=== PATIENT | female | born 1985 | race Caucasian/White ===

== ENCOUNTER 2018-10-10 07:26 | Inpatient (IN) | payer BC ==
[~2018-10-10 07:26] MED LIST: Bupivacaine 0.25% 10 ML SDV ONE
--- NOTE | 2018-10-10 07:45 | PCM.LDHP ---
L&D History of Present Illness - General Date of Service: 10/10/18 Admit Problem/Dx: Admission Diagnosis/Problem Admission Diagnosis/Problem 10/10/18 07:34 Mauro is a 33-year-old 6 para 5005 white female with an LEE of 2018 at 39-0/7 weeks gestational age admitted for induction of labor. Source of Information: Patient History Limitations: Reports: No Limitations - History of Present Illness Introduction:: Mauro is a 33-year-old 6 para 5005 white female with an LEE of 2018 at 39-0/7 weeks gestational age admitted for induction of labor.Patient has been assessed of the options of therapy including induction of labor, allowing for onset of natural labor. She appears to understand, wishes to proceed. 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 He is not 2018 is based upon a certain last menstrual period starting 01/10/2018 and supported by 3 ultrasounds done on 05/02/2018, 06/15/2018 and 08/29/2018. Patient's course has been unremarkable with the exception of 1 ultrasound finding of the fetus and that is left renal hydronephrosis noted with thinning of the kidney parenchyma. This is the indication for the the recommendation for induction of labor at 39 weeks gestational age. Patient initiated her care at approximately 12 weeks on 04/04/2018. She seen on a regular basis. With complete obstetric ultrasound patient is noted to have a baby with right renal kidney pelvis which is upper limits normal size. Follow-up ultrasound confirmed an dilation with the diagnosis of hydronephrosis. Patient was referred to Dr. Pasha MURPHY and decision was made to proceed with induction of labor at 39 weeks. Recommendation was for follow-up ultrasound of kidneys and evaluation after delivery. Patient's weight during the course of the was from 173.6 pounds 196 pounds for approximately a 23 pound weight gain. Her vital signs remained stable throughout the course and her fundal height growth was appropriate. Patient declines STD testing. She desires an epidural in labor and delivery. [place] depression screening score was 0. The strep screen was positive on urine culture at the beginning of the . She is a candidate for antibiotic prophylaxis. She declines flu vaccine. She is planning on breast-feeding. She declined genetic evaluation. She did have her RhoGAM administered on 07/26/2018 at the end of second trimester. Past obstetric history is as follows: Patient had menarche at age 15. Cycles every 20-29 days. No control to time conception. Her final LEE is based upon a certain last menstrual period which started on 01/10/2018. Deliveries have included the followin. Female born 08/20/2009 at 41 weeks gestational age after 12 hours labor6 lbs. 15 oz.-Child's name is Rosibel. 2. Male infant born [birth year]2010 at 38 weeks gestational age after 6 hours of labor7 lbs. 11 oz.child's name is Gerry. 3. Male born [birth year]2011 at 41 weeks gestational age after 8 hours of labor7 lbs. 14 oz.child's name is Hernandez. 4. Female infant born 05/27/2014 at 40-2/7 weeks gestational age after 7 hours of labor9 lbs. 1 oz.child's name is Astrid Elias. 5. Male born 02/18/2016 at 40 weeks gestational age7 hours of labor7 lbs. 0 oz.child's name is Ian. Laboratory testing shows blood to be A- with a negative antibody screen. First hemoglobin was 12.0 g/dL. Platelets at that time were 295 ,000. She is rubella immune. She received RhoGAM on 07/26/2018. Patient refused STI testing. Urine culture showed group B strep positive status second trimester labs showed a hemoglobin of 10.8 g she deciliter and patient started on iron supplementation. Platelets were 204,00. 1 hour GTT was 127. Allergies: seasonal only Medications: 1. vitamins1 daily 2. Ferrous sulfate 325 mg by mouth daily. Past medical history: 1. 5. 2. Abnormal Pap smear age 18. Past surgical history: 1. [place] teeth removal Family history: Mother and father are alive and well. No anesthesia, bleeding, blood clotting problems noted in the family. Social history: Patient is . She lives in [facility] with her and family. 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 She is a college graduate. She does not use any significant amounts of alcohol, drugs or tobacco. Review of systems: In general patient has no complaints. Baby has been active. Skin: Negative Lungs: No infectious symptoms or shortness of breath Cardiovascular: No chest pain or exercise intolerance Breasts: Changes associated with but otherwise no lumps, changes in size, pain, dimpling, discharge or axillary or supraclavicular concerns. GI: Negative : changes Musculoskeletal: Negative Neurological: Negative In general the patient is well-developed, well-nourished, pleasant female of stated age in no acute distress. Skin is warm dry without lesions. HEENT, neck and back within normal limits. Lungs are clear with good breath sounds in all lung yanes. Cardiovascular exam shows regular and rhythm without murmurs. Breasts exam is deferred having been done at first visit found to be normal and is not repeated at this time. Patient plans to breast-feed. Abdomen is gravid with last fundal height in clinic at 38 cm. Genital digital exam last evaluation shows cervix to be 2 cm, 70% effaced, very soft, mid position and -3 station.. Extremities and neurological exam are grossly within normal limits. 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 39-0/7 week intrauterine admitted for induction of labor due to hydronephrosis. 2. Risks for the include hydronephrosis, history macrosomic baby , 6 status, group B strep positive status. 3. Group B strep positive per urine culture early in pregnancypatient is candidate for ampicillin prophylaxis in labor and delivery 4. Patient desires epidural in labor and delivery 5. Patient is rubella immune 6. RPR nonreactive Plan: 1. Artificial rupture membranes induction of labor augmentation with Pitocin as necessary 2. Group B strep prophylaxis with ampicillin per protocol 3. Epidural per patient desire 4. Support breast-feeding decision 5. RPR and CBC upon admission 6. Inform pediatrics of hydronephrosis.
[2018-10-10] MEDS ORDERED: Ondansetron 4 MG/2 ML SDV IVPUSH PRN ×2 (08:13→10:08)
[2018-10-10] MEDS ORDERED: Sodium Chloride 0.9% 10 ML Syringe FLUSH PRN (08:13)
[2018-10-10] MEDS ORDERED: Nalbuphine 10 MG/1 ML Vial IVPUSH PRN (08:13)
[2018-10-10] MEDS ORDERED: Ampicillin 2 GM in Sodium Chloride 0.9% 100 ML IV ONE (08:13)
[2018-10-10] MEDS ORDERED: Oxytocin/Lactated Ringers 10 UNIT/1,000 ML BAG IV SCH ×2 (08:15→08:30)
[2018-10-10] MEDS: Lactated Ringers 1,000 ML IV SCH ×3 (08:45→13:56)
[2018-10-10] MEDS ORDERED: fentaNYL 100 MCG/2 ML SDV EPIDUR PRN (10:08)
[2018-10-10] MEDS ORDERED: ePHEDrine 50 MG/ML SDV IVPUSH PRN (10:08)
--- NOTE | 2018-10-10 10:12 | PCM.PREANE ---
Preanesthetic Assessment - Anesthesia/Transfusion/Family Hx Anesthesia History: Prior Anesthesia Without Reaction Family History of Anesthesia Reaction: No Transfusion History: No Prior Transfusion(s) Intubation History: Unknown - Review of Systems General: No Symptoms Pulmonary: No Symptoms Cardiovascular: No Symptoms, Palpitations (on occasion with dehydration) Gastrointestinal: No Symptoms Neurological: No Symptoms, Headache Other: Reports: None - Physical Assessment NPO Status Date: 10/10/18 NPO Status Time: 06:00 Vital Signs: Last Vital Signs Temp 36.9 C 10/10/18 08:13 Pulse 94 10/10/18 08:13 Resp 16 10/10/18 08:13 BP 124/80 10/10/18 08:13 Pulse Ox 99 10/10/18 08:13 Height: 1.8 m Weight: 88.451 kg ASA Class: 2 Mental Status: Alert & Oriented x3 Airway Class: Mallampati = 2 Dentition: Reports: Normal Dentition, Caries Thyro-Mental Finger Breadths: 3 Mouth Opening Finger Breadths: 3 ROM/Head Extension: Full Lungs: Clear to Auscultation, Normal Respiratory Effort Cardiovascular: Regular Rate, Regular Rhythm, No Murmurs - Lab Values: Laboratory Last Values WBC 6.34 K/mm3 (3.98-10.04) 10/10/18 08:23 RBC 3.69 M/mm3 (3.98-5.22) L 10/10/18 08:23 Hgb 11.0 gm/L (11.2-15.7) L 10/10/18 08:23 Hct 32.2 % (34.1-44.9) L 10/10/18 08:23 MCV 87.3 fl (79.4-94.8) 10/10/18 08:23 MCH 29.8 pg (25.6-32.2) 10/10/18 08:23 MCHC 34.2 g/dl (32.2-35.5) 10/10/18 08:23 RDW Std Deviation 40.6 fL (36.4-46.3) 10/10/18 08:23 Plt Count 194 K/mm3 (182-369) 10/10/18 08:23 MPV 9.2 fl (9.4-12.3) L 10/10/18 08:23 Neut % (Auto) 78.0 % (34.0-71.1) H 10/10/18 08:23 Lymph % (Auto) 11.8 % (19.3-51.7) L 10/10/18 08:23 [place] % (Auto) 9.0 % (4.7-12.5) 10/10/18 08:23 Eos % (Auto) 0.5 (0.7-5.8) L 10/10/18 08:23 Baso % (Auto) 0.2 % (0.1-1.2) 10/10/18 08:23 Neut # (Auto) 4.95 K/mm3 (1.56-6.13) 10/10/18 08:23 Lymph # (Auto) 0.75 K/mm3 (1.18-3.74) L 10/10/18 08:23 [place] # (Auto) 0.57 K/mm3 (0.24-0.36) H 10/10/18 08:23 Eos # (Auto) 0.03 K/mm3 (0.04-0.36) L 10/10/18 08:23 Baso # (Auto) 0.01 K/mm3 (0.01-0.08) 10/10/18 08:23 Above labs reviewed and noted and within acceptable ranges to proceed with epidural if desired. 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: Hematologic History: Reports: Anemia Dermatologic History: Reports: Eczema - Past Surgical History HEENT Surgical History: Reports: Oral Surgery - SUBSTANCE USE Smoking Status *Q: Never Smoker Recreational Drug Use History: No - HOME MEDS Home Medications: Home Meds Vit 90/Iron Fum/Folic [ Formula] 1 each PO DAILY 05/27/14 [ History] Ferrous Sulfate [Iron] 325 mg PO DAILY 10/05/18 [History] - CURRENT (IN HOUSE) MEDS Current Meds: Current Medications Ephedrine Sulfate (Ephedrine Sulfate) 5 mg IVPUSH ASDIRECTED PRN PRN Reason: Hypotension Fentanyl (Sublimaze) 100 mcg EPIDUR Q3H PRN PRN Reason: Pain Fentanyl/Bupivacaine HCl (Fentanyl/Bupivacaine/Ns 2 Mcg-0.125% 100 Ml) 100 ml EPIDUR ASDIRECTED ADITYA Ampicillin Sodium 1 gm/ Sodium (Chloride) 100 mls @ 200 mls/hr IV Q4H ADITYA Lactated Ringer's (Ringers, Lactated) 1,000 mls @ 100 mls/hr IV ASDIRECTED ADITYA Last Admin: 10/10/18 08:45 Dose: 100 mls/hr Oxytocin/Lactated Ringer's (Pitocin In Lr 10 Units/1,000 Ml) 10 unit in 1,000 mls @ 500 mls/hr IV .CONTINUOUS ADITYA Oxytocin/Lactated Ringer's (Pitocin In Lr 10 Units/1,000 Ml) 10 unit in 1,000 mls @ 12 mls/hr IV TITRATE ADITYA; Protocol Phenylephrine HCl 1 mg/ Sodium (Chloride) 10.1 mls @ 1 mls/sec IV TITRATE ADITYA; Protocol Nalbuphine HCl (Nubain) 10 mg IVPUSH Q2H PRN PRN Reason: Pain Ondansetron HCl (Zofran) 4 mg IVPUSH Q4H PRN PRN Reason: Nausea/Vomiting Ondansetron HCl (Zofran) 4 mg IVPUSH ONETIME PRN PRN Reason: Nausea/Vomiting Sodium Chloride (Saline Flush) 10 ml FLUSH ASDIRECTED PRN PRN Reason: Keep Vein Open Discontinued Medications Ampicillin Sodium 2 gm/ Sodium (Chloride) 100 mls @ 200 mls/hr IV ONETIME ONE Stop: 10/10/18 08:42 Last Admin: 10/10/18 08:45 Dose: 200 mls/hr
[2018-10-10] MEDS ORDERED: Phenylephrine 1 MG in Sodium Chloride 0.9% 10 ML IV SCH (10:15)
[2018-10-10] MEDS ORDERED: Bupivacaine/fentaNYL/NS 100 ML Bag EPIDUR SCH (10:15)
[2018-10-10] MEDS ORDERED: Ampicillin 1 GM in Sodium Chloride 0.9% 100 ML IV SCH (12:15)
--- NOTE | 2018-10-10 15:12 | PCM.SN ---
- Free Text/Narrative Note: Delivery note: Mauro is a 33-year-old 6 now para 6006 white female who is induced medically for hydronephrosis. She is 39-0/7 weeks gestational age with an LEE of 10/17/2018. She was admitted this a.m. for artificial rupture membranes induction. She underwent artificial rupture membranes induction with resultant clear amniotic fluid. She was augmented with Pitocin. She made rapid cervical change and became complete lead dilated at approximately 1445 hrs. She had an epidural placed for labor analgesia. Bleeding was noted vaginally at the end of the labor felt to be due to her rapid progression of cervical dilation. She delivered a viable, sanchez, male with Apgars of 9 and 9, a weight of 3610 g (7 pounds 15.3 ounces) over an intact perineum in a left occiput anterior position. The baby had a a length of 20.5 inches. He was placed on mom' s abdomen and nose and mouth were bulb suctioned. Pitocin was increased to 500 mL an hour to facilitate increase in uterine tone and decrease likelihood of bleeding. The cord was allowed to pulsate 1 minute and then was clamped 2 and cut by the baby's father Dhaval. The umbilical cord had 3 blood vessels present. Cord blood was obtained. Patient is noted to have an intact perineum. No suturing was required. The placenta delivered in a Peter presentation, appeared intact and complete and was discarded per patient desire. Patient plans to breast-feed. Estimated blood loss was 200 mL. Condition: Good.
[2018-10-10] MEDS ORDERED: Witch Hazel Medicated Pads 40/Jar TOP PRN (15:40)
[2018-10-10] MEDS ORDERED: Acetaminophen 325 MG Tab PO PRN (15:40)
[2018-10-10] MEDS ORDERED: Docusate Sodium 100 MG Cap PO PRN (15:40)
[2018-10-10] MEDS ORDERED: Benzocaine/Menthol 20%-0.5% Spray 56 GM Canister TOP PRN (15:40)
[2018-10-10] MEDS ORDERED: Lanolin 100% Cream 7 GM Tube TOP PRN (15:40)
[2018-10-10] MEDS: Ibuprofen 600 MG Tab PO PRN (16:33)
[2018-10-11] MEDS: Ibuprofen 600 MG Tab PO PRN ×2 (00:09→10:14)
--- NOTE | 2018-10-11 06:18 | PCM.DCSUM1 ---
Discharge Summary - Hospital Course Free Text/Narrative:: Mauro is a 33-year-old 6 now para 6006 white female who is induced medically for hydronephrosis. She is 39-0/7 weeks gestational age with an LEE of 10/17/2018. She was admitted this a.m. for artificial rupture membranes induction. She underwent artificial rupture membranes induction with resultant clear amniotic fluid. She was augmented with Pitocin. She made rapid cervical change and became complete lead dilated at approximately 1445 hrs. She had an epidural placed for labor analgesia. Bleeding was noted vaginally at the end of the labor felt to be due to her rapid progression of cervical dilation. She delivered a viable, sanchez, male with Apgars of 9 and 9, a weight of 3610 g (7 pounds 15.3 ounces) over an intact perineum in a left occiput anterior position. The baby had a a length of 20.5 inches. He was placed on mom' s abdomen and nose and mouth were bulb suctioned. Pitocin was increased to 500 mL an hour to facilitate increase in uterine tone and decrease likelihood of bleeding. The cord was allowed to pulsate 1 minute and then was clamped 2 and cut by the baby's father Dhaval. The umbilical cord had 3 blood vessels present. Cord blood was obtained. Patient is noted to have an intact perineum. No suturing was required. The placenta delivered in a Peter presentation, appeared intact and complete and was discarded per patient desire. Patient plans to breast-feed. Estimated blood loss was 200 mL. patient is unwell. She is nursing without problems. Lochia is minimal. She [place] well and has recovered from her epidural. Is desiring discharge home. Condition: Good. Diagnosis: Stroke: No - Discharge Data Discharge Date: 10/11/18 Discharge Disposition: Home, Self-Care 01 Condition: Good - Patient Instructions Diet: Regular Diet as Tolerated (Nursing diet and increase calories and calcium is recommended) Activity: As Tolerated (No intercourse or tampons until bleeding resolves) Driving: May Drive Today Showering/Bathing: May Shower (May take a bath) Notify Provider of: Fever, Increased Pain, Swelling and Redness, Nausea and/or Vomiting - Discharge Plan Home Medications: Home Meds Vit 90/Iron Fum/Folic [ Formula] 1 each PO DAILY 05/27/14 [ History] Ferrous Sulfate [Iron] 325 mg PO DAILY 10/05/18 [History] Acetaminophen [Tylenol] 650 mg PO Q4H PRN tablet 10/11/18 [Rx] Ibuprofen [Motrin] 600 mg PO Q4H PRN tablet 10/11/18 [Rx] Referrals: Christofer Choi MD [Primary Care Provider] - (Return to clinicDr. Choi or [facility]2 weeks.) - Discharge Summary/Plan Comment DC Time >30 min.: No Discharge Summary/Plan Comment: Discharge instructions: 1. Discharge home 2. Diet, activity and follow-up discussed with patient. Recommend nursing diet with increased calories and calcium. 3. Precautions given concern increased pain, bleeding, temperature, signs/ symptoms of DVT/PE. 4. Medications per home medication was printed, discussed with and given to the patient. 5. Return to clinic-Dr[facility] Jimbo Juares[facility] in 2 weeks. Diagnosis: 1. Term -delivered 2. hydronephrosis Condition: Good - Patient Data Vitals - Most Recent: Last Vital Signs Temp 36.7 C 10/10/18 21:02 Pulse 67 10/11/18 03:31 Resp 14 10/11/18 03:31 BP 117/72 10/11/18 03:31 Pulse Ox 98 10/11/18 03:31 Weight - Most Recent: 88.451 kg I&O - Last 24 hours: Intake & Output 10/10/18 10/10/18 10/11/18 14:59 22:59 06:59 Intake Total 560 Balance 560 Lab Results - Last 24 hrs: Laboratory Results - last 24 hr 10/10/18 10/10/18 10/10/18 Range/Units 08:23 08:23 18:31 WBC 6.34 (3.98-10.04) K/mm3 RBC 3.69 L (3.98-5.22) M/mm3 Hgb 11.0 L (11.2-15.7) gm/L Hct 32.2 L (34.1-44.9) % MCV 87.3 (79.4-94.8) fl MCH 29.8 (25.6-32.2) pg MCHC 34.2 (32.2-35.5) g/dl RDW Std Deviation 40.6 (36.4-46.3) fL Plt Count 194 (182-369) K/mm3 MPV 9.2 L (9.4-12.3) fl Neut % (Auto) 78.0 H (34.0-71.1) % Lymph % (Auto) 11.8 L (19.3-51.7) % [place] % (Auto) 9.0 (4.7-12.5) % Eos % (Auto) 0.5 L (0.7-5.8) Baso % (Auto) 0.2 (0.1-1.2) % Neut # (Auto) 4.95 (1.56-6.13) K/mm3 Lymph # (Auto) 0.75 L (1.18-3.74) K/mm3 [place] # (Auto) 0.57 H (0.24-0.36) K/mm3 Eos # (Auto) 0.03 L (0.04-0.36) K/mm3 Baso # (Auto) 0.01 (0.01-0.08) K/mm3 RPR Non-reactive (NONREACTIVE) Blood Type A NEGATIVE Gel Antibody Screen Negative Screen 0 ros/5 flds - neg RhIG Candidate? Yes Rhogam Indicated Yes, baby rh pos H Med Orders - Current: Current Medications Acetaminophen (Tylenol) 650 mg PO Q4H PRN PRN Reason: mild pain or fever Benzocaine/Menthol (Dermoplast Pain Relief [place]) 0 gm TOP ASDIRECTED PRN PRN Reason: Perineal Comfort Measure Docusate Sodium (Colace) 100 mg PO BID PRN PRN Reason: Constipation Emollient Ointment (Lansinoh Hpa) 0 gm TOP ASDIRECTED PRN PRN Reason: Sore Nipples Ferrous Sulfate (Ferrous Sulfate) 325 mg PO WITHBREAKFAST ADITYA Ibuprofen (Motrin) 600 mg PO Q4H PRN PRN Reason: Mild pain or fever Last Admin: 10/11/18 00:09 Dose: 600 mg Prenat Multivit/Riley/Iron/Folic Ac ( Plus Iron) 1 each PO DAILY ADITYA Alan Elissa (Tucks) 1 pad TOP ASDIRECTED PRN PRN Reason: Pain Discontinued Medications Ephedrine Sulfate (Ephedrine Sulfate) 5 mg IVPUSH ASDIRECTED PRN PRN Reason: Hypotension Fentanyl (Sublimaze) 100 mcg EPIDUR Q3H PRN PRN Reason: Pain Last Admin: 10/10/18 11:37 Dose: 100 mcg Fentanyl/Bupivacaine HCl (Fentanyl/Bupivacaine/Ns 2 Mcg-0.125% 100 Ml) 100 ml EPIDUR ASDIRECTED ADITYA Last Admin: 10/10/18 11:37 Dose: 100 ml Ampicillin Sodium 2 gm/ Sodium (Chloride) 100 mls @ 200 mls/hr IV ONETIME ONE Stop: 10/10/18 08:42 Last Admin: 10/10/18 08:45 Dose: 200 mls/hr Ampicillin Sodium 1 gm/ Sodium (Chloride) 100 mls @ 200 mls/hr IV Q4H ADITYA Last Admin: 10/10/18 12:23 Dose: 200 mls/hr Lactated Ringer's (Ringers, Lactated) 1,000 mls @ 100 mls/hr IV ASDIRECTED ADITYA Last Admin: 10/10/18 13:56 Dose: 100 mls/hr Oxytocin/Lactated Ringer's (Pitocin In Lr 10 Units/1,000 Ml) 10 unit in 1,000 mls @ 500 mls/hr IV .CONTINUOUS ADITYA Oxytocin/Lactated Ringer's (Pitocin In Lr 10 Units/1,000 Ml) 10 unit in 1,000 mls @ 12 mls/hr IV TITRATE ADITYA; Protocol Last Titration: 10/10/18 13:56 Dose: 7 munits/min, 42 mls/hr Phenylephrine HCl 1 mg/ Sodium (Chloride) 10.1 mls @ 1 mls/sec IV TITRATE ADITYA; Protocol Nalbuphine HCl (Nubain) 10 mg IVPUSH Q2H PRN PRN Reason: Pain Ondansetron HCl (Zofran) 4 mg IVPUSH Q4H PRN PRN Reason: Nausea/Vomiting Ondansetron HCl (Zofran) 4 mg IVPUSH ONETIME PRN PRN Reason: Nausea/Vomiting Sodium Chloride (Saline Flush) 10 ml FLUSH ASDIRECTED PRN PRN Reason: Keep Vein Open
[2018-10-11] MEDS ORDERED: Ferrous Sulfate 325 MG Tab PO SCH (07:00)
--- NOTE | 2018-10-11 07:44 | PCM48HPAN ---
Post Anesthesia Note - EVALUATION WITHIN 48HRS OF ANESTHETIC Vital Signs in Normal Range: Yes Patient Participated in Evaluation: Yes Respiratory Function Stable: Yes Airway Patent: Yes Cardiovascular Function Stable: Yes Hydration Status Stable: Yes Pain Control Satisfactory: Yes Nausea and Vomiting Control Satisfactory: Yes Mental Status Recovered: Yes Vital Signs: Last Vital Signs Temp 36.7 C 10/10/18 21:02 Pulse 67 10/11/18 03:31 Resp 14 10/11/18 03:31 BP 117/72 10/11/18 03:31 Pulse Ox 98 10/11/18 03:31 - COMMENTS/OBSERVATIONS Free Text/Narrative:: no anesthesia complications noted
[2018-10-11] MEDS ORDERED: Prenatal Multivitamin with Calcium/Folic Acid/Iron Tab PO SCH (09:00)
[2018-10-11 17:28] VITALS: BP 102/77
== END 2018-10-11 18:10 | disposition home or self-care (01) | DRG 560 ==
LOC: JD.OB 07:26 → OBSVTOIN 14:47 → JD.OB 14:47
PROVIDERS: ADMIT Obstetrics & Gynecology; ATTEND Obstetrics & Gynecology
PROC: 10907ZC Drainage of Amniotic Fluid, Therapeutic from Products of Conception, Via Natural or Artificial Opening (ICD-10-PCS; principal; 2018-10-10)
PROC: 10E0XZZ Delivery of Products of Conception, External Approach (ICD-10-PCS; 2018-10-10)
DX: O36.8930 Maternal care for other specified fetal problems, third trimester, not applicable or unspecified (principal); O99.824 Streptococcus B carrier state complicating childbirth; Z3A.39 39 weeks gestation of pregnancy; Z37.0 Single live birth
CPT/HCPCS: 36415; 36430; 51702; 59025; 59409; 85025; 85461; 86592; 86850; 86900; 86901; A9270-GY; J0290; J2590; J2790; J3010; J3490; J7030; J7120

== ENCOUNTER 2019-10-07 22:09 | Emergency (ER) | payer BC ==
[2019-10-07 22:21] VITALS: BP 142/92; PULSE 92
--- NOTE | 2019-10-07 22:31 | EDM.PDOC ---
ED HPI GENERAL MEDICAL PROBLEM - General Chief Complaint: Genitourinary Problem Stated Complaint: poss uti fever Time Seen by Provider: 10/07/19 22:20 Source of Information: Reports: Patient History Limitations: Reports: No Limitations - History of Present Illness INITIAL COMMENTS - FREE TEXT/NARRATIVE: Mrs. Maurer is a very pleasant 34-year-old woman who now presents the ED stating that she developed dysuria, urinary frequency, and mild suprapubic abdominal pain around 16:30 this afternoon. She found her temperature to be mildly elevated at 100.3 degrees around 21:00 this evening, therefore she took 2 tablets of Advil. No recent nausea or vomiting. No prior similar symptoms. She states that the last time she had a UTI was when she was "little". Here in the ED, the patient's initial BP is found to be mildly elevated at 142/92, otherwise, she is hemodynamically stable, afebrile, saturating 96% on room air. Other than today's urinary symptoms, the patient denies having a recent fever, chills, sore throat, ear pain, nasal or sinus congestion, cough, dyspnea, chest pain, palpitations, nausea, vomiting, constipation, diarrhea, abdominal pain, recent weight gain or weight loss, recent bloody bowel movements or black bowel movements, recent joint aches, headaches, or rashes. The patient's PCP is Maral Juares NP. Lower Abdomen Pain Score (Numeric/FACES): 6 - Related Data Allergies Allergy/AdvReac Type Severity Reaction Status Date / Time No Known Allergies Allergy Verified 10/05/18 11:36 Home Meds: Home Meds Ibuprofen [Motrin] 600 mg PO Q4H PRN tablet 10/11/18 [Rx] nitrofurantoin macrocrystaL [Nitrofurantoin] 1 cap PO Q12H #10 capsule 10/07/19 [Rx] Past Medical History HEENT History: Reports: Impaired Vision Dermatologic History: Reports: Eczema - Past Surgical History HEENT Surgical History: Reports: Oral Surgery (wisdom teeth extraction) Social & Family History - Tobacco Use Smoking Status *Q: Never Smoker - Caffeine Use Caffeine Use: Reports: None - Alcohol Use Alcohol Use History: Yes Alcohol Use Frequency: Socially - Recreational Drug Use Recreational Drug Use: No - Living Situation & Occupation Living situation: Reports: , with Spouse, with Family (6 kids) 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 ED EXAM, RENAL/ - Physical Exam Exam: See Below Exam Limited By: No Limitations General Appearance: Alert, WD/WN, No Apparent Distress Eye Exam: Bilateral Eye: EOMI, Normal Inspection Ears: Normal External Exam, Hearing Grossly Normal Nose: Normal Inspection Throat/Mouth: Normal Inspection, Normal Lips, Normal Voice, No Airway Compromise Head: Atraumatic, Normocephalic Neck: Normal Inspection, Full Range of Motion Respiratory/Chest: No Respiratory Distress, Lungs Clear, Normal Breath Sounds, No Accessory Muscle Use Cardiovascular: Normal Peripheral Pulses, Regular Rate, Rhythm, No Edema, No Gallop, No JVD, No Murmur, No Rub GI/Abdominal: Normal Bowel Sounds, Soft, No Organomegaly, No Distention, No Abnormal Bruit, No Mass, Tender (Minimal, suprapubic region only. Nontender elsewhere.) (Female) Exam: Deferred Rectal (Female) Exam: Deferred Back Exam: Normal Inspection, Full Range of Motion. No: CVA Tenderness (L), CVA Tenderness (R) Extremities: Normal Inspection, Normal Range of Motion, No Pedal Edema, Normal Capillary Refill Neurological: Alert, Oriented, Normal Cognition, No Motor/Sensory Deficits Psychiatric: Normal Affect Skin Exam: Warm, Dry, Intact, Normal Color, No Rash Course - Vital Signs Last Recorded V/S: Last Vital Signs Temp 36.9 C 10/07/19 22:16 Pulse 92 10/07/19 22:16 Resp 18 10/07/19 22:16 BP 142/92 H 10/07/19 22:16 Pulse Ox 96 10/07/19 22:16 - Orders/Labs/Meds Labs: Laboratory Tests 10/07/19 10/07/19 Range/Units 22:22 22:23 Urine Color Yellow (Yellow) Urine Appearance Clear (Clear) Urine pH 8.0 (5.0-8.0) Ur Specific [place] 1.020 (1.005-1.030) Urine Protein 2+ H (Negative) Urine Glucose (UA) Negative (Negative) Urine Ketones Negative (Negative) Urine Occult Blood 3+ H (Negative) Urine Nitrite Negative (Negative) Urine Bilirubin Negative (Negative) Urine Urobilinogen 0.2 (0.2-1.0) Ur Leukocyte Esterase 1+ H (Negative) Urine RBC 30-40 H (0-5) /hpf Urine WBC 5-10 H (0-5) /hpf Ur Squamous Epith Cells 0-5 (0-5) /hpf Urine Bacteria Few (FEW) /hpf Urine Mucus Rare (FEW) /hpf Urine HCG, Qual Negative (NEGATIVE) - Re-Assessments/Exams Free Text/Narrative Re-Assessment/Exam: 10/07/19 22:29 As above, the patient developed dysuria, urinary frequency, and suprapubic abdominal pain this afternoon. While she states that she had a temperature of 100.3 degrees earlier tonight, she is afebrile here in the ED. On examination, she has minimal suprapubic tenderness and no CVA tenderness. Her symptoms are consistent with a UTI. The patient has already provided a urine sample, which will be sent for urinalysis and urine test. 10/07/19 22:46 The patient's urinalysis is remarkable for 3+ occult blood with 30-40 RBCs, 1+ leukocyte esterase with 5-10 WBCs, nitrate negative with few bacteria, and 0-5 squamous epithelial cells. Or the patient to have complaint of flank pain or have CVA tenderness, I would say that her urinalysis is more consistent with a ureterolith, however, she does not have either of those, therefore I will treat her for a UTI by starting her on nitrofurantoin. I will also order a urine culture. 10/07/19 22:56 Test results discussed with the patient. We will also start her on Pyridium. Departure - Departure Time of Disposition: 22:50 Disposition: Home, Self-Care 01 Condition: Good Clinical Impression: UTI (urinary tract infection) - Discharge Information *PRESCRIPTION DRUG MONITORING PROGRAM REVIEWED*: Not Applicable *COPY OF PRESCRIPTION DRUG MONITORING REPORT IN PATIENT RENATO: Not Applicable Referrals: Maral Juares NP [Nurse Practitioner] - Forms: ED Department Discharge Additional Instructions: You were seen in the emergency room donation, frequent urination, and lower abdominal pain this afternoon. Work-up in the ER included a urinalysis and a urine test. Your urinalysis is consistent with a urinary tract infection. Your urine test returned negative. You have been started on the antibiotic nitrofurantoin, and a prescription for nitrofurantoin has been sent to the [facility] located [facility]. Take 1 tablet of nitrofurantoin every 12 hours, as prescribed. Finish the entire prescription unless told otherwise by Ms. Juares. You have also been started on the bladder-pain reliever Pyridium, which is available serg-sar-[id number] as "Azo". You may take up to 3 doses per day, for 2 days, for total of 6 doses of Azo. We do not recommend that you take any more Azo than that. Azo will turn your urine orange, which is normal. Stay adequately hydrated. It does not really matter what type of fluid you drink. Follow-up with your PCP, Maral Juares NP, this coming morning, 10/10/2019, to check on your urine culture results, to make sure that you are on the correct antibiotic. If any other problems, please do not hesitate to return to the ER. Sepsis Event Note (ED) - Evaluation Sepsis Screening Result: No Definite Risk - Focused Exam Vital Signs: Vital Signs Temp Pulse Resp BP Pulse Ox 10/07/19 22:16 36.9 C 92 18 142/92 H 96
[2019-10-07] MEDS ORDERED: Nitrofurantoin Monohydrate/Macrocrystalline 100 MG Cap PO STA (22:48)
[2019-10-07] MEDS ORDERED: Phenazopyridine 95 MG Tab PO STA (22:55)
== END 2019-10-07 23:00 | disposition home or self-care (01) ==
LOC: JD.ED 22:09
DX: N39.0 Urinary tract infection, site not specified (principal)
CPT/HCPCS: 81001; 81025; 87086; 99284; A9270; 87088; 87186; 99283

== ENCOUNTER 2023-11-07 05:30 | Emergency (ER) | payer BC, OTHER ==
[2023-11-07] MEDS: HYDROmorphone 0.5 MG/0.5 ML Syringe IVPUSH ONE (06:20)
[2023-11-07] MEDS: Metoclopramide 10 MG/2 ML SDV IVPUSH ONE (06:20)
[2023-11-07] MEDS: Dextrose 5%-Lactated Ringers 1,000 ML IV SCH (06:20)
[2023-11-07 06:42] LABS: BASOPHILS PERCENT AUTO 0.4 % (0.0-1.0); EOSINOPHILS PERCENT AUTO 0.8 % (0.0-6.0); HEMATOCRIT 33.5 % (37.0-47.0); HEMOGLOBIN 11.2 gm/dl (12.0-16.0); IMMATURE GRAN ABSOLUTE AUTO 0.01 K/mm3 (0.00-0.05); IMMATURE GRAN PERCENT AUTO 0.2 % (0.0-0.4); LYMPHOCYTES ABSOLUTE AUTO 0.4 K/mm3 (1.0-4.8); LYMPHOCYTES PERCENT AUTO 7.7 % (24.0-44.0); MEAN CORPUSCULAR HEMOGLOBIN 28.8 pg (28.0-32.0); MEAN CORPUSCULAR HGB CONC 33.4 g/dl (32.0-36.0); MEAN CORPUSCULAR VOLUME 86.1 fl (83.0-99.0); MEAN PLATELET VOLUME 8.8 fl (9.4-12.3); MONOCYTES ABSOLUTE AUTO 0.8 K/mm3 (0.0-0.8); MONOCYTES PERCENT AUTO 14.5 % (0.0-8.0); NEUTROPHILS ABSOLUTE AUTO 4.1 K/mm3 (1.8-7.7); NEUTROPHILS PERCENT AUTO 76.4 % (41.0-71.0); PLATELET COUNT,PLT 246 K/mm3 (150-400); RED BLOOD CELL COUNT 3.89 M/mm3 (4.10-5.30); WHITE BLOOD CELL COUNT,WBC 5.31 K/mm3 (3.9-11.3)
[2023-11-07 07:04] LABS: A/G RATIO 0.9 (1-2); ALBUMIN 3.5 g/dl (3.4-5.0); ANION GAP 13.1 (5-15); BILIRUBIN TOTAL 0.5 mg/dL (0.2-1.0); BUN/CREATININE RATIO 8.8 (14-18); C-REACTIVE PROTEIN 3.43 mg/dL (<0.30); CALCIUM 8.7 mg/dL (8.5-10.1); CREATININE 0.8 mg/dL (0.55-1.02); EST CRCL DRUG DOSING (CG) 106.57 mL/min; MAGNESIUM 1.8 mg/dL (1.8-2.4); POTASSIUM,K 4.1 mEq/L (3.5-5.1); PROTEIN TOTAL,TP 7.4 g/dl (6.4-8.2); TSH 1.228 uIU/mL (0.358-3.74)
[2023-11-07 07:06] LABS: LACTIC ACID 0.4 mmol/L (0.4-2.0)
[2023-11-07 08:34] VITALS: BP 112/81; PULSE 98
[2023-11-09 22:41] LABS: TTG AB, IGA 340.72 FLU (0.00-4.99)
== END 2023-11-07 08:34 | disposition home or self-care (01) ==
LOC: JD.ED 05:30
DX: R19.7 Diarrhea, unspecified (principal); R10.30 Lower abdominal pain, unspecified; R11.2 Nausea with vomiting, unspecified; Z86.16 Personal history of COVID-19
CPT/HCPCS: 36415; 80053; 83605; 83735; 84443; 85025; 86140; 86364; 96361; 96374; 96375; 99284; J2765; J7121